=== PATIENT | female | born 1955 | race African-American/Black ===

== ENCOUNTER 2017-11-21 08:28 | Emergency (ER) | payer BC ==
[2017-11-21] MEDS ORDERED: LIDOCAINE 2% VISCOUS SOLN 20 ML UDCUP PO ONE (09:34)
[2017-11-21] MEDS ORDERED: MAG HYDROX/AL HYDROX/SIMETH SUSP 30 ML UDCUP PO ONE (09:34)
[2017-11-21] MEDS ORDERED: METOCLOPRAMIDE HCL ORAL SOLN 10 MG/10 ML UDCUP PO ONE (09:34)
--- NOTE | 2017-11-21 09:37 | ER Document Report ---
ED GI/ - General Chief Complaint: Abdominal Pain Stated Complaint: ABDOMINAL PAIN Time Seen by Provider: 11/21/17 09:31 Notes: The patient is a 62-year-old female, past medical history GERD, presents with 1 month of epigastric pain that is worsening over the past 2 days. She tried her Prilosec without much relief of her symptoms. Pain is worse at night while she lays down. She really had a negative H. pylori test done by her primary care physician and blood work 3 weeks ago that was unremarkable. She denies nausea, vomiting, fevers, hematemesis or urinary symptoms. TRAVEL OUTSIDE OF THE [place] IN LAST 30 DAYS: No - Related Data Allergies/Adverse Reactions: amoxicillin Allergy (Verified 03/30/16 12:19) Past Medical History - General Information source: Patient - Social History Smoking Status: Never Smoker Chew tobacco use (# tins/day): No Frequency of alcohol use: None Drug Abuse: None Family History: Reviewed & Not Pertinent Patient has suicidal ideation: No Patient has homicidal ideation: No - Past Medical History Cardiac Medical History: Reports: Hx Hypertension Renal/ Medical History: Denies: Hx Peritoneal Dialysis Past Surgical History: Reports: Hx Appendectomy Review of Systems - Review of Systems Notes: REVIEW OF SYSTEMS: CONSTITUTIONAL: -fevers, -chills EENT: -eye pain, -difficulty swallowing, -nasal congestion CARDIOVASCULAR: -chest pain, -syncope. RESPIRATORY: -cough, -SOB GASTROINTESTINAL: +epigastric abdominal pain, -nausea, -vomiting, -diarrhea GENITOURINARY: -dysuria, -hematuria MUSCULOSKELETAL: -back pain, -neck pain SKIN: -rash or skin lesions. HEMATOLOGIC: -easy bruising or bleeding. LYMPHATIC: -swollen, enlarged glands. NEUROLOGICAL: -altered mental status or loss of consciousness, -headache, - neurologic symptoms PSYCHIATRIC: -anxiety, -depression. ALL OTHER SYSTEMS REVIEWED AND NEGATIVE. Physical Exam - Vital signs Vitals: Temp Pulse Resp BP Pulse Ox 98.1 F 75 16 149/92 H 98 11/21/17 08:34 11/21/17 08:34 11/21/17 08:34 11/21/17 08:34 11/21/17 08:34 - Notes Notes: PHYSICAL EXAMINATION: GENERAL: Well-appearing, well-nourished and in no acute distress. HEAD: Atraumatic, normocephalic. EYES: Pupils equal round and reactive to light, extraocular movements intact, sclera anicteric, conjunctiva are normal. ENT: nares patent, oropharynx clear without exudates. Moist mucous membranes. NECK: Normal range of motion, supple without lymphadenopathy LUNGS: Breath sounds clear to auscultation bilaterally and equal. No wheezes rales or rhonchi. HEART: Regular rate and rhythm without murmurs ABDOMEN: Soft, epigastric abdominal tenderness, normoactive bowel sounds. No guarding, no rebound. No masses appreciated. EXTREMITIES: Normal range of motion, no pitting or edema. No cyanosis. NEUROLOGICAL: Cranial nerves grossly intact. Normal speech, normal gait. Normal sensory and motor exams. PSYCH: Normal mood, normal affect. SKIN: Warm, Dry, normal turgor, no rashes or lesions noted. Course - Re-evaluation Re-evalutation: Patient with 6 weeks of epigastric abdominal pain that is worse at night. Blood work is unremarkable and troponin EKG did not show any signs of active cardiac ischemia. She has already seen her primary care physician for this pain. Instructed her to follow-up with GI for possible EGD and further evaluation. She is already taking Prilosec once daily, so instructed her to begin it twice daily. Will also add Carafate. - Vital Signs Vital signs: Temp Pulse Resp BP Pulse Ox 98.1 F 75 16 149/92 H 98 11/21/17 08:34 11/21/17 08:34 11/21/17 08:34 11/21/17 08:34 11/21/17 08:34 - Laboratory Result Diagrams: 11/21/17 09:57 11/21/17 09:57 Laboratory results interpreted by me: 11/21/17 11/21/17 09:57 09:57 RBC 5.38 H RDW 14.6 H Sodium 145.8 H Direct Bilirubin 0.5 H AST 39 H Discharge - Discharge Clinical Impression: Epigastric abdominal pain Condition: Stable Disposition: HOME, SELF-CARE Additional Instructions: Gastritis You have an inflammation of the stomach called gastritis. This commonly causes upper abdominal pain, nausea, and vomiting. In severe cases, bleeding of the stomach lining can occur. Gastritis can be caused by bacteria or viruses , alcohol, or stomach-irritating drugs. Begin with sips of clear liquids. Take increasing amounts of fluid over the first 24 hours. Then start small amounts of bland foods (such as dry toast , applesauce, mashed potato). Gradually resume your usual diet. You should take antacids every two hours until the pain has subsided. Acid -suppressing drugs may be prescribed as well. Avoid aspirin, caffeine, tobacco , and alcohol. If the abdominal pain worsens, or there is evidence of major bleeding in the stomach (such as black, tarry stool, bloody or black vomit, or lightheadedness), you should return immediately. Call the doctor if you aren't improved in 24 to 36 hours. Prescriptions: Sucralfate [Carafate 1 gm Tablet] 1 gm PO ACHS #30 tablet Forms: Elevated Blood Pressure Referrals: RICKY VIVEROS MD [ACTIVE STAFF] - Follow up as needed
[2017-11-21 10:22] LABS: ABSOLUTE EOSINOPHILS # (AUTO) 0.1 10^3/uL (0.0-0.6); ABSOLUTE LYMPHOCYTES (AUTO) 1.5 10^3/uL (0.5-4.7); ABSOLUTE MONOCYTES (AUTO) 0.9 10^3/uL (0.1-1.4); ABSOLUTE NEUT (AUTO) 6.1 10^3/uL (1.7-8.2); BASOPHILS % (AUTO) 0.4 % (0-2); EOSINOPHILS % (AUTO) 0.7 % (0-6); HEMATOCRIT 44.6 % (36.0-47.0); HEMOGLOBIN 14.8 g/dL (12.0-15.5); LYMPHOCYTES % (AUTO) 17.6 % (13-45); MEAN CORPUSCULAR HEMOGLOBIN 27.6 pg (27.0-33.4); MEAN CORPUSCULAR HGB CONC 33.3 g/dL (32.0-36.0); MEAN CORPUSCULAR VOLUME 83 fl (80-97); MONOCYTES % (AUTO) 10.9 % (3-13); PLATELET COUNT 336 10^3/uL (150-450); RED BLOOD COUNT 5.38 10^6/uL (3.72-5.28); RED CELL DISTRIBUTION WIDTH 14.6 % (11.5-14.0); SEGMENTED NEUTROPHILS % (AUTO) 70.4 % (42-78); TOTAL CELLS COUNTED % (AUTO) 100 %; WHITE BLOOD COUNT 8.6 10^3/uL (4.0-10.5)
[2017-11-21 10:48] LABS: ALANINE AMINOTRANSFERASE 28 U/L (9-52); ALBUMIN 4.3 g/dL (3.5-5.0); ALKALINE PHOSPHATASE 101 U/L (38-126); ANION GAP 13 (5-19); ASPARTATE AMINO TRANSFERASE 39 U/L (14-36); BILIRUBIN,DIRECT 0.5 mg/dL (0.0-0.4); BILIRUBIN,TOTAL 0.5 mg/dL (0.2-1.3); BLOOD UREA NITROGEN 13 mg/dL (7-20); CALCIUM 10.1 mg/dL (8.4-10.2); CARBON DIOXIDE 29 mmol/L (22-30); CHLORIDE 104 mmol/L (98-107); GLUCOSE 92 mg/dL (75-110); LIPASE 33.4 U/L (23-300); POTASSIUM 4.2 mmol/L (3.6-5.0); SODIUM 145.8 mmol/L (137-145); TOTAL PROTEIN 8.1 g/dL (6.3-8.2)
[2017-11-21 11:28] VITALS: BP 148/93
--- NOTE | 2017-11-21 22:54 | EKG REPORT ---
SEVERITY:- ABNORMAL ECG - SINUS RHYTHM CONSIDER ANTEROSEPTAL INFARCT BORDERLINE T ABNORMALITIES, INFERIOR LEADS : Confirmed by: Anderson Aguilar 21-Nov-2017 22:54:25
== END 2017-11-21 11:28 | disposition home or self-care (01) ==
LOC: MERGE 08:28 → ER 08:28
DX: R10.13 Epigastric pain (principal); I10 Essential (primary) hypertension; Z79.899 Other long term (current) drug therapy
CPT/HCPCS: 93005; 99284; 36415; 83690; 85025; 80053; 84484; 93010; J3490

== ENCOUNTER 2017-11-23 06:00 | Emergency (ER) | payer BC ==
[2017-11-23] MEDS ORDERED: MAG HYDROX/AL HYDROX/SIMETH SUSP 30 ML UDCUP PO ONE (07:21)
[2017-11-23] MEDS ORDERED: LIDOCAINE 2% VISCOUS SOLN 20 ML UDCUP PO ONE (07:21)
[2017-11-23] MEDS ORDERED: METOCLOPRAMIDE HCL ORAL SOLN 10 MG/10 ML UDCUP PO ONE (07:21)
--- NOTE | 2017-11-23 07:31 | ER Document Report ---
ED GI/ - General Mode of Arrival: Ambulatory Information source: Patient TRAVEL OUTSIDE OF THE [place] IN LAST 30 DAYS: No <CHUCK RAMIRES - Last Filed: 11/23/17 09:02> <YANETH REID - Last Filed: 11/23/17 15:24> - General Chief Complaint: Chest Pain Stated Complaint: CHEST PAIN Time Seen by Provider: 11/23/17 07:19 Notes: Patient is a 62-year-old female who presents to the emergency department today with complaints of epigastric abdominal pain. Patient states she has had this pain for about a month but has never had a scope done. Patient states her pain is pretty sharp and constant however it increases at night and after food. Patient states she is short of breath but only with her pain. Patient denies any cough or history of AL. (CHUCK RAMIRES) - Related Data Allergies/Adverse Reactions: amoxicillin Allergy (Verified 03/30/16 12:19) Past Medical History - General Information source: Patient - Social History Smoking Status: Never Smoker Cigarette use (# per day): No Chew tobacco use (# tins/day): No Frequency of alcohol use: None Drug Abuse: None Lives with: Family Family History: Reviewed & Not Pertinent Patient has suicidal ideation: No Patient has homicidal ideation: No - Past Medical History Cardiac Medical History: Reports: Hx Hypertension Past Surgical History: Reports: Hx Appendectomy <CHUCK RAMIRES - Last Filed: 11/23/17 09:02> Review of Systems - Review of Systems Constitutional: No symptoms reported EENT: No symptoms reported Cardiovascular: No symptoms reported Respiratory: See HPI, Short of breath - from pain. denies: Cough Gastrointestinal: See HPI, Abdominal pain Genitourinary: No symptoms reported Female Genitourinary: No symptoms reported Musculoskeletal: No symptoms reported Skin: No symptoms reported Hematologic/Lymphatic: No symptoms reported Neurological/Psychological: No symptoms reported -: Yes All other systems reviewed and negative <CHUCK RAMIRES - Last Filed: 11/23/17 09:02> Physical Exam <CHUCK RAMIRES - Last Filed: 11/23/17 09:02> <YANETH REID - Last Filed: 11/23/17 15:24> - Vital signs Vitals: Temp Pulse Resp BP Pulse Ox 98 F 75 18 144/88 H 96 11/23/17 06:13 06/23/18 06:13 11/23/17 06:13 11/23/17 06:13 11/23/17 06:13 - Notes Notes: Physical Exam: General: Alert, appears well. HEENT: Normocephalic. Atraumatic. PERRL. Extraocular movements intact. Oropharynx clear. Neck: Supple. Non-tender. Respiratory: No respiratory distress. Clear and equal breath sounds bilaterally. Cardiovascular: Regular rate and rhythm. Abdominal: Epigastric and RUQ tenderness with palpation. No distension. Normal Bowel Sounds. Back: Non-tender. No deformity or step off. Extremities: Moves all four extremities. Upper extremities: Normal inspection. Normal ROM. Lower extremities: Normal inspection. No edema. Normal ROM. Neurological: Normal cognition. AAOx4. Normal speech. Psychological: Normal affect. Normal Mood. Skin: Warm. Dry. Normal color. (CHUCK RAMIRES) Course - Laboratory Result Diagrams: 11/23/17 07:40 11/23/17 07:40 <CHUCK RAMIRES - Last Filed: 11/23/17 09:02> - Laboratory Result Diagrams: 11/23/17 07:40 11/23/17 07:40 - Diagnostic Test Radiology reviewed: Image reviewed - NAD - EKG Interpretation by Ny EKG shows normal: Sinus rhythm Rate: Normal Rhythm: NSR - Normal axis and intervals When compared to previous EKG there are: No significant change <YANETH REID - Last Filed: 11/23/17 15:24> - Re-evaluation Re-evalutation: 11/23/17 10:06 Patient's labs within normal limits nonsignificant with no concerning findings on EKG chest x-ray and right upper quadrant ultrasound. Patient has GI consultation she states on Saturday of this week for further evaluation and consideration of EGD. Troponin negative and no EKG changes patient's pain has been steady second troponin over the last several days reveals no concern for ACS at this time. She also has sour taste in her throat pain is worse normally after eating and laying down at night. Her signs and symptoms are considered gastritis versus symptomatic gallbladder. Instructed patient to follow-up with her GI specialist on Saturday of this week. She is also losing limit her diet and reduce the amount of fatty and acidic food she eats. We will augment with Maalox currently taking omeprazole and Carafate. Return precautions provided (YANETH REID) - Vital Signs Vital signs: Temp Pulse Resp BP Pulse Ox 98.7 F 75 18 136/90 H 97 11/23/17 10:12 11/23/17 06:13 11/23/17 10:12 11/23/17 10:12 11/23/17 10:12 - Laboratory Laboratory results interpreted by me: 11/23/17 07:40 RDW 14.6 H Discharge <CHUCK RAMIRES - Last Filed: 11/23/17 09:02> <YANETH REID - Last Filed: 11/23/17 15:24> - Discharge Clinical Impression: Epigastric abdominal pain Condition: Good Disposition: HOME, SELF-CARE Instructions: Antacid Therapy ([facility]), Antinausea Medication ([facility]), Low-Fat Diet ([facility]), Reflux Disease (GERD) ([facility]) Additional Instructions: Per discussion, please follow-up with GI specialist Saturday of this coming week for further evaluation. Prescriptions: Bismuth Subsalicylate [Maalox] 1 dose PO ASDIR PRN #1 bottle PRN Reason: Scribe Attestation: 11/23/17 15:24 I personally performed the services described documentation, reviewed and edited the documentation which was dictated to describe my presence, and it accurately records my words and actions. (YANETH REID) Scribe Documentation - Scribe Written by Scribe:: Blanka Adame, 11/23/2017 0916 acting as scribe for :: Luis <CHUCK RAMIRES - Last Filed: 11/23/17 09:02>
[2017-11-23 07:59] LABS: ABSOLUTE LYMPHOCYTES (AUTO) 1.6 10^3/uL (0.5-4.7); BASOPHILS % (AUTO) 0.3 % (0-2); EOSINOPHILS % (AUTO) 0.5 % (0-6); LYMPHOCYTES % (AUTO) 20.9 % (13-45); MEAN CORPUSCULAR HEMOGLOBIN 27.9 pg (27.0-33.4); MEAN CORPUSCULAR HGB CONC 33.3 g/dL (32.0-36.0); MEAN CORPUSCULAR VOLUME 84 fl (80-97); MONOCYTES % (AUTO) 12.9 % (3-13); PLATELET COUNT 310 10^3/uL (150-450); RED BLOOD COUNT 5.01 10^6/uL (3.72-5.28); RED CELL DISTRIBUTION WIDTH 14.6 % (11.5-14.0); SEGMENTED NEUTROPHILS % (AUTO) 65.4 % (42-78); TOTAL CELLS COUNTED % (AUTO) 100 %; WHITE BLOOD COUNT 7.6 10^3/uL (4.0-10.5)
--- NOTE | 2017-11-23 08:11 | RADIOLOGY REPORT (SQ) ---
EXAM DESCRIPTION: CHEST SINGLE VIEW COMPLETED DATE/TIME: 11/23/2017 7:44 am REASON FOR STUDY: chest pain COMPARISON: None. NUMBER OF VIEWS: One view. TECHNIQUE: Single frontal radiographic view of the chest acquired. LIMITATIONS: None. FINDINGS: LUNGS AND PLEURA: Low lung volumes. No opacities, masses or pneumothorax. No pleural eff usion. MEDIASTINUM AND HILAR STRUCTURES: No masses. No contour abnormality. HEART AND VASCULAR STRUCTURES: Normal size. No evidence for failure. BONES: No acute findings. HARDWARE: None in the chest. OTHER: No other significant finding. IMPRESSION: LOW LUNG VOLUMES. NO SIGNIFICANT RADIOGRAPHIC FINDING IN THE CHEST. TECHNICAL DOCUMENTATION: JOB ID: [id number] [employer]- All Rights Reserved Reading location - IP/workstation name: [email or web address]
[2017-11-23 08:13] LABS: ALANINE AMINOTRANSFERASE 25 U/L (9-52); ALBUMIN 4.2 g/dL (3.5-5.0); ALKALINE PHOSPHATASE 95 U/L (38-126); ANION GAP 12 (5-19); ASPARTATE AMINO TRANSFERASE 35 U/L (14-36); BILIRUBIN,DIRECT 0.4 mg/dL (0.0-0.4); BILIRUBIN,TOTAL 0.7 mg/dL (0.2-1.3); BLOOD UREA NITROGEN 10 mg/dL (7-20); CALCIUM 9.9 mg/dL (8.4-10.2); CARBON DIOXIDE 29 mmol/L (22-30); CHLORIDE 102 mmol/L (98-107); GLUCOSE 97 mg/dL (75-110); POTASSIUM 4.2 mmol/L (3.6-5.0); SODIUM 143.2 mmol/L (137-145); TOTAL PROTEIN 7.9 g/dL (6.3-8.2)
--- NOTE | 2017-11-23 09:36 | RADIOLOGY REPORT (SQ) ---
EXAM DESCRIPTION: U/S ABDOMEN LIMITED W/O DOP COMPLETED DATE/TIME: 11/23/2017 9:21 am REASON FOR STUDY: epigastric pain, RUQ pain COMPARISON: None. TECHNIQUE: Dynamic and static grayscale images acquired of the abdomen and recorded on PACS. Additio nal selected color Doppler and spectral images recorded. LIMITATIONS: Markedly limited visualization from body habitus and overlying obscuring bowel gas. FINDINGS: PANCREAS: Not visualized. LIVER: Trace perihepatic fluid. Echogenic parenchyma suggests steatosis. LIVER VASCULATURE: Normal directional flow of the main portal vein and hepatic veins. GALLBLADDER: Obscured. No regional fluid. ULTRASOUND-DETECTED SALINAS'S SIGN: Negative. INTRAHEPATIC DUCTS AND COMMON DUCT: CBD and intrahepatic ducts normal caliber. No filling defects. INFERIOR VENA CAVA: Normal flow. AORTA: Not visualized. RIGHT KIDNEY: Normal size. Normal echogenicity. No solid or suspicious masses. No hydronephrosis. No calcifications. PERITONEAL AND RIGHT PLEURAL SPACE: No ascites or effusions. OTHER: No other significant findings. IMPRESSION: Very limited study. No gross suggestion of acute gallbladder disease. See above. TECHNICAL DOCUMENTATION: JOB ID: [id number] [employer]- All Rights Reserved Reading location - IP/workstation name: [email or web address]
--- NOTE | 2017-11-23 09:58 | EKG REPORT ---
SEVERITY:- ABNORMAL ECG - SINUS RHYTHM CONSIDER ANTEROSEPTAL INFARCT VS LVH BORDERLINE T ABNORMALITIES, INFERIOR LEADS : Confirmed by: Anderson Aguilar 23-Nov-2017 09:58:09
[2017-11-23 10:15] VITALS: BP 136/90
== END 2017-11-23 10:31 | disposition home or self-care (01) ==
LOC: MERGE 06:00 → ER 06:00
DX: R10.13 Epigastric pain (principal); R07.9 Chest pain, unspecified; R10.11 Right upper quadrant pain; I10 Essential (primary) hypertension; Z88.0 Allergy status to penicillin
CPT/HCPCS: 93005; 99285; 36415; 85025; 80053; 84484; 71045; 76705; 93010; J3490

== ENCOUNTER → 2017-12-10 | Outpatient (CLI) | payer BC ==
--- NOTE | 2017-12-10 16:40 | RADIOLOGY REPORT (SQ) ---
EXAM DESCRIPTION: CT ABDOMEN WITH IV ORAL CONT COMPLETED DATE/TIME: 12/10/2017 12:55 pm REASON FOR STUDY: EPIGASTRIC PAIN (R10.13), NAUSEA (R11.0) R10.13 EPIGASTRIC PAIN R11.0 NAUSEA COMPARISON: None. TECHNIQUE: CT scan of the abdomen performed with intravenous and with oral contrast using helical sc anning technique with dynamic intravenous contrast injection. Images reviewed with lung, soft tissue, and bone windows. Reconstructed coronal and sagittal MPR images reviewed. Delayed images for evaluat ion of the urinary system also acquired and evaluated. All images stored on PACS. All CT scanners at this facility use dose modulation, iterative reconstruc tion, and/or weight based dosing when appropriate to reduce radiation dose to as low as reasonably ac hievable (ALARA). [facility]: Dose Right [facility]: CareDose [facility]: Dose Right [facility]: Teradose 4D [facility]: Thumbtack CONTRAST TYPE AND DOSE: contrast/concentration: Isovue 370.00 mg/ml; Total Contrast Delivered: 99.0 ml; Total Saline Delivered: 72.0 ml RENAL FUNCTION: Creatinine 0.85 RADIATION DOSE: CT Rad equipment meets quality standard of care and radiation dose reduction techniq ues were employed. CTDIvol: 19.9 - 21.8 mGy. DLP: 1582 mGy-cm. . LIMITATIONS: Pelvis was not scanned FINDINGS: There are findings worrisome for peritoneal carcinomatosis, with a small amount of ascites in the abdomen, abnormal increased density of omental fat with spotty omental fat calcification, a r ind of low-density soft tissue along the cheikh hepatis structures and falciform ligament/gallbladder fossa region. At the bottom edge of the field of view, the right and left ovaries are massively enla rged and heterogeneous in density. LOWER CHEST: 1.8 cm nodule in the right medial cardiophrenic angle. Trace left pleural effusion. LIVER: Normal size. No primary liver masses or biliary ductal dilatation. Low attenuation material covers the surface of the liver under the hemidiaphragm and along the cheikh hepatis/gallbladder fossa worrisome for peritoneal tumor implants. SPLEEN: Normal size. No focal lesions. PANCREAS: No masses. No significant calcifications. No adjacent inflammation or peripancreatic fluid collections. Pancreatic duct not dilated. GALLBLADDER: No identified stones by CT criteria. No inflammatory changes to suggest cholecystitis. ADRENAL GLANDS: No significant masses or asymmetry. RIGHT KIDNEY AND URETER: No solid masses. No significant calcifications. No hydronephrosis or hyd roureter. LEFT KIDNEY AND URETER: No solid masses. No significant calcifications. No hydronephrosis or hydr oureter. AORTA AND VESSELS: No aneurysm. No dissection. Renal arteries, SMA, celiac without stenosis. RETROPERITONEUM: No retroperitoneal adenopathy, hemorrhage or masses. BOWEL AND PERITONEAL CAVITY: Patient drank oral contrast. No bowel obstruction. Sigmoid diverticulo sis without CT signs of acute diverticulitis APPENDIX: Not identified ABDOMINAL WALL: No masses. No hernias. BONES: No significant or acute findings. OTHER: No other significant finding. IMPRESSION: Findings worrisome for peritoneal carcinomatosis, possibly from [employer]PERATOR malignancy. Entire Pelvis was not scanned TECHNICAL DOCUMENTATION: JOB ID: [id number] Quality ID # [id number]: Final reports with documentation of one or more dose reduction techniques (e.g., Au tomated exposure control, adjustment of the mA and/or kV according to patient size, use of iterative reconstruction technique) 2010 [employer]- All Rights Reserved Reading location - IP/workstation name: [email or web address]
== END ==
LOC: MERGE 12-06 08:00 → RAD 12:20
PROVIDERS: ATTEND Internal Medicine Gastroenterology
DX: R10.13 Epigastric pain (principal); R11.0 Nausea
CPT/HCPCS: 74160

== ENCOUNTER 2018-05-19 08:10 | Emergency (ER) | payer BC ==
--- NOTE | 2018-05-19 08:23 | ER Document Report ---
ED General - General Chief Complaint: Chest Pain Stated Complaint: CHEST PAIN Time Seen by Provider: 05/19/18 08:22 Notes: Patient is a 62-year-old female, with active ovarian cancer undergoing chemotherapy that presents to the emergency department for chief complaint of chest pain. The patient reports that the pain started earlier this morning around 4 AM, then it got worse she had sweats associated and nausea. The currently rate the pain as 2 out of 10, and described as aching and heaviness in the middle of her chest, and subxiphoid region. They have had associated nausea and sweats. Denies any shortness of breath or difficulty breathing. Their risk factors for heart disease include hypertension, as mentioned patient has ongoing ovarian carcinoma. She denies any recent fevers, chills, night sweats, cough, diarrhea, dysuria or hematuria. Past Medical History: Ovarian cancer, hypertension Past Surgical History: Laparotomy and total hysterectomy Social History: Admits to smoking cigarettes, denies alcohol or drug use. Family History: Reviewed and noncontributory for presenting illness Allergies: Reviewed, see documented allergy list. REVIEW OF SYSTEMS: Other than noted above, the 12 point review of systems was reviewed with the patient and were negative, all pertinent findings are included in the HPI. PHYSICAL EXAMINATION: Vital signs reviewed, nursing noted reviewed. GENERAL: Obese, female in no acute distress HEAD: Atraumatic, normocephalic. EYES: Eyes appear normal, extraocular movements intact, sclera anicteric, conjunctiva are normal. ENT: nares patent, oropharynx clear without exudates. Moist mucous membranes. NECK: Normal range of motion, supple without lymphadenopathy LUNGS: Breath sounds clear to auscultation bilaterally and equal. No wheezes rales or rhonchi. Chest wall tenderness HEART: Regular rate and rhythm without murmurs ABDOMEN: Soft, nontender, normoactive bowel sounds. No rebound, guarding, or rigidity. No masses appreciated. EXTREMITIES: Nontender, good range of motion, no pitting or edema. NEUROLOGICAL: No focal neurological deficits. Moves all extremities spontaneously Motor and sensory grossly intact on exam. PSYCH: Normal mood, normal affect. SKIN: Warm, Dry, normal turgor, no rashes or lesions noted on exposed skin TRAVEL OUTSIDE OF THE [place] IN LAST 30 DAYS: No - Related Data Allergies/Adverse Reactions: amoxicillin [Amoxicillin] Allergy (Verified 05/19/18 08:10) guaifenesin [From [facility]] Allergy (Verified 05/19/18 08:10) phenylephrine HCl [From [facility]] Allergy (Verified 05/19/18 08:10) Past Medical History - Social History Smoking Status: Current Every Day Smoker Family History: Reviewed & Not Pertinent - Past Medical History Cardiac Medical History: Reports: Hx Hypertension Renal/ Medical History: Denies: Hx Peritoneal Dialysis Past Surgical History: Reports: Hx Appendectomy - Immunizations Hx Diphtheria, Pertussis, Tetanus Vaccination: Yes - 2003 Physical Exam - Vital signs Vitals: Pulse Ox 100 05/19/18 08:26 Course - Re-evaluation Re-evalutation: Patient seen and examined vital signs reviewed. Laboratory data and imaging were ordered as appropriate for the patient's presenting symptoms and complaint, with consideration of any critical or life threatening conditions that may be associated with their obtained history and exam as noted above. Including CT angiogram was ordered, ultrasound-guided IV placed on myself was placed in the right upper arm, however unfortunately this infiltrated during contrast bolusing, I then had to place a second ultrasound-guided IV in the left upper arm, which fortunately the patient's CTA was successful, and was negative for acute pulmonary embolism, and any other acute finding in the chest or lungs, there was mention of possible fluid around the gallbladder, and wall thickening, however patient clinically was asymptomatic, and blood work was not consistent with acute cholecystitis, this could potentially be a side effect from her chemotherapy, which I did discuss with the patient. Results were reviewed when available and demonstrated negative troponins x2, negative CTA of the chest, lipase negative, essentially unremarkable workup, EKG is not concerning for acute ischemia as well. The patient was re-evaluated and was stable, pain had completely resolved Evaluation was most consistent with chest pain, nonspecific, I did review this case with the patient's oncologist office, prior to discharge. Results were discussed with the patient at this point, after careful consideration I feel that that patient can be discharged from the emergency department, the patient was educated treatments and reasons to return to the emergency department based on their presumed diagnosis as noted above, they were advised to followup with a primary care physician in 2-3 days. Patient was agreeable to plan of care. *Note is created using voice recognition software and may contain spelling, syntax or grammatical errors. Laboratory 05/19/18 05/19/18 05/19/18 08:30 08:30 08:30 WBC 2.9 L RBC 4.13 Hgb 12.6 Hct 38.2 MCV 93 MCH 30.5 MCHC 32.9 RDW 17.5 H Plt Count 169 Seg Neutrophils % 25.3 L Lymphocytes % 54.1 H Monocytes % 19.5 H Eosinophils % 0.9 Basophils % 0.2 Absolute Neutrophils 0.7 L Absolute Lymphocytes 1.6 Absolute Monocytes 0.6 Absolute Eosinophils 0.0 Absolute Basophils 0.0 Sodium 142.1 Potassium 4.2 Chloride 107 Carbon Dioxide 24 Anion Gap 11 BUN 14 Creatinine 0.77 Est GFR ( Amer) > 60 Est GFR (Non-Af Amer) > 60 Glucose 108 Calcium 9.7 Total Bilirubin 0.5 Direct Bilirubin 0.4 Neonat Total Bilirubin Not Reportable Neonat Direct Bilirubin Not Reportable Neonat Indirect Bili Not Reportable AST 54 H ALT 10 Alkaline Phosphatase 133 H Troponin I < 0.012 Total Protein 7.9 Albumin 4.2 Lipase 05/19/18 05/19/18 08:30 11:24 WBC RBC Hgb Hct MCV MCH MCHC RDW Plt Count Seg Neutrophils % Lymphocytes % Monocytes % Eosinophils % Basophils % Absolute Neutrophils Absolute Lymphocytes Absolute Monocytes Absolute Eosinophils Absolute Basophils Sodium Potassium Chloride Carbon Dioxide Anion Gap BUN Creatinine Est GFR ( Amer) Est GFR (Non-Af Amer) Glucose Calcium Total Bilirubin Direct Bilirubin Neonat Total Bilirubin Neonat Direct Bilirubin Neonat Indirect Bili AST ALT Alkaline Phosphatase Troponin I < 0.012 Total Protein Albumin Lipase 58.0 Chest/Abdomen CTA 05/19/18 08:43 IMPRESSION: No evidence for pulmonary embolic disease. No acute consolidations or pleural effusions. Some minimal linear densities are identified in the lung bases most consistent with subsegmental atelectasis or scarring. There appears to be some thickening of the gallbladder monsivais and I cannot exclude a component of pericholecystic fluid. No obvious gallstones are identified. Clinical correlation is recommended. Gallbladder ultrasound may be of value for further evaluation if clinically warranted. Other findings as noted above - Vital Signs Vital signs: Temp Pulse Resp BP Pulse Ox 18 124/80 99 05/19/18 12:34 05/19/18 12:34 05/19/18 12:34 - Laboratory Result Diagrams: 05/19/18 08:30 05/19/18 08:30 Laboratory results interpreted by me: 05/19/18 05/19/18 08:30 08:30 WBC 2.9 L RDW 17.5 H Seg Neutrophils % 25.3 L Lymphocytes % 54.1 H Monocytes % 19.5 H Absolute Neutrophils 0.7 L AST 54 H Alkaline Phosphatase 133 H - EKG Interpretation by Me Additional EKG results interpreted by me: EKG demonstrates sinus rhythm with a ventricular rate of 77 bpm, normal axis, normal intervals, no evidence of acute ischemia on this EKG, no prior for comparison. Discharge - Discharge Clinical Impression: Chest pain Qualifiers: Chest pain type: unspecified Qualified Code(s): R07.9 - Chest pain, unspecified Condition: Stable Disposition: HOME, SELF-CARE Instructions: Chest Pain of Unclear Cause ([facility]) Additional Instructions: Please return to the emergency department if you have any worsening, or concern of your symptoms. Please return to the emergency department if you develop chest pain, difficulty breathing, severe abdominal pain, or ongoing vomiting. Please follow-up with your primary care physician in 2-3 days and any other recommended physicians. If prescribed, take all medications as directed. If you have any questions or concerns do not hesitate to return the emergency department for evaluation. Referrals: RICARDO HOWELL MD [ACTIVE STAFF] - Follow up in 3-5 days
[2018-05-19 08:44] LABS: ABSOLUTE LYMPHOCYTES (AUTO) 1.6 10^3/uL (0.5-4.7); ABSOLUTE MONOCYTES (AUTO) 0.6 10^3/uL (0.1-1.4); ABSOLUTE NEUT (AUTO) 0.7 10^3/uL (1.7-8.2); BASOPHILS % (AUTO) 0.2 % (0-2); EOSINOPHILS % (AUTO) 0.9 % (0-6); HEMATOCRIT 38.2 % (36.0-47.0); HEMOGLOBIN 12.6 g/dL (12.0-15.5); LYMPHOCYTES % (AUTO) 54.1 % (13-45); MEAN CORPUSCULAR HEMOGLOBIN 30.5 pg (27.0-33.4); MEAN CORPUSCULAR HGB CONC 32.9 g/dL (32.0-36.0); MEAN CORPUSCULAR VOLUME 93 fl (80-97); MONOCYTES % (AUTO) 19.5 % (3-13); PLATELET COUNT 169 10^3/uL (150-450); RED BLOOD COUNT 4.13 10^6/uL (3.72-5.28); RED CELL DISTRIBUTION WIDTH 17.5 % (11.5-14.0); SEGMENTED NEUTROPHILS % (AUTO) 25.3 % (42-78); TOTAL CELLS COUNTED % (AUTO) 100 %; WHITE BLOOD COUNT 2.9 10^3/uL (4.0-10.5)
[2018-05-19 09:26] LABS: ALANINE AMINOTRANSFERASE 10 U/L (9-52); ALBUMIN 4.2 g/dL (3.5-5.0); ALKALINE PHOSPHATASE 133 U/L (38-126); ANION GAP 11 (5-19); ASPARTATE AMINO TRANSFERASE 54 U/L (14-36); BILIRUBIN,DIRECT 0.4 mg/dL (0.0-0.4); BILIRUBIN,TOTAL 0.5 mg/dL (0.2-1.3); BLOOD UREA NITROGEN 14 mg/dL (7-20); CALCIUM 9.7 mg/dL (8.4-10.2); CARBON DIOXIDE 24 mmol/L (22-30); CHLORIDE 107 mmol/L (98-107); GLUCOSE 108 mg/dL (75-110); POTASSIUM 4.2 mmol/L (3.6-5.0); SODIUM 142.1 mmol/L (137-145); TOTAL PROTEIN 7.9 g/dL (6.3-8.2)
--- NOTE | 2018-05-19 11:30 | RADIOLOGY REPORT (SQ) ---
EXAM DESCRIPTION: CTA CHEST COMPLETED DATE/TIME: 05/19/2018 11:07 am REASON FOR STUDY: chest pain, active ovarian cancer COMPARISON: None. TECHNIQUE: CT scan of the chest performed using helical scanning technique with dynamic intravenous contrast injection. Images reviewed with lung, soft tissue and bone windows. Reconstructed coronal and sagittal MPR images reviewed. Additional 3 dimensional post-processing performed to develop Maximal Intensity Projection images ([place] P). All images stored on PACS. All CT scanners at this facility use dose modulation, iterative reconstruction, and/or weight based d osing when appropriate to reduce radiation dose to as low as reasonably achievable (ALARA). [facility]: Dose Right [facility]: CareDose [facility]: Dose Right [facility]: Teradose 4D [facility]: Cas[place]u CONTRAST TYPE AND DOSE: contrast/concentration: Isovue 350.00 mg/ml; Total Contrast Delivered: 82.0 ml; Total Saline Delivered: 68.3 ml Contrast bolus optimized for the pulmonary arteries. Not diagnostic for the aorta. RENAL FUNCTION: Creatinine 0.77 RADIATION DOSE: CT Rad equipment meets quality standard of care and radiation dose reduction techniq ues were employed. CTDIvol: 36.7 - 41.3 mGy. DLP: 1173 mGy-cm. . LIMITATIONS: None. FINDINGS: LUNGS AND PLEURA: No masses, infiltrates, or pneumothorax. No pleural effusions or pleura l calcifications. There are some minimal linear densities in the lung bases most consistent with sub segmental atelectasis or scarring. AORTA AND GREAT VESSELS: No aneurysm. Contrast bolus not optimized for the aorta. HEART: No pericardial effusion. No significant coronary artery calcifications. PULMONARY ARTERIES: No emboli visualized in the main pulmonary arteries or the segmental branches. HILAR AND MEDIASTINAL STRUCTURES: No identified masses or abnormal nodes. HARDWARE: None in the chest. UPPER ABDOMEN: There appears to be some thickening of the gallbladder monsivais and I cannot exclude a co mponent of pericholecystic fluid. No obvious gallstones are identified. Clinical correlation is rec ommended. Gallbladder ultrasound may be of value for further evaluation if clinically warranted. THYROID AND OTHER SOFT TISSUES: No masses. No adenopathy. BONES: No acute or significant finding. 3D MIPS: Confirm above findings. OTHER: No other significant finding. IMPRESSION: No evidence for pulmonary embolic disease. No acute consolidations or pleural effusions . Some minimal linear densities are identified in the lung bases most consistent with subsegmental a telectasis or scarring. There appears to be some thickening of the gallbladder monsivais and I cannot ex clude a component of pericholecystic fluid. No obvious gallstones are identified. Clinical correlat ion is recommended. Gallbladder ultrasound may be of value for further evaluation if clinically bertha anted. Other findings as noted above COMMENT: Quality ID # [id number]: Final reports with documentation of one or more dose reduction techniques (e.g., Automated exposure control, adjustment of the mA and/or kV according to patient size, use of iterative reconstruction technique) TECHNICAL DOCUMENTATION: JOB ID: [id number] [employer]- All Rights Reserved Reading location - IP/workstation name: [email or web address]
[2018-05-19 12:46] VITALS: BP 124/80
--- NOTE | 2018-05-19 13:27 | EKG REPORT ---
SEVERITY:- NORMAL ECG - SINUS RHYTHM : Confirmed by: Eliot Guerrier MD 19-May-2018 13:26:14
== END 2018-05-19 12:40 | disposition home or self-care (01) ==
LOC: ER 08:10
DX: R07.9 Chest pain, unspecified (principal); C56.9 Malignant neoplasm of unspecified ovary; Z79.899 Other long term (current) drug therapy; R11.0 Nausea; R61 Generalized hyperhidrosis; I10 Essential (primary) hypertension; F17.210 Nicotine dependence, cigarettes, uncomplicated; E66.9 Obesity, unspecified
CPT/HCPCS: 36415; 71275; 80053; 83690; 84484; 85025; 93005; 93010; 99285

== ENCOUNTER 2019-07-09 06:24 | Emergency (ER) | payer BC ==
--- NOTE | 2019-07-09 10:17 | ER Document Report ---
ED General - General Chief Complaint: Mouth Problem Stated Complaint: HEAD/MOUTH PAIN Time Seen by Provider: 07/09/19 09:55 Primary Care Provider: ANA M HURST MD [Primary Care Provider] - Follow up as needed Notes: Patient is a 63-year-old -Turkmen female with a past medical history significant for ovarian cancer who is currently undergoing chemotherapy who presents to the emergency department with a chief complaint of painful sores in the mouth. She states this is happened before. She states the chemotherapy causes side effect of the painful sores in her mouth. She was given a mouthwash in the past that worked to help clear the areas. She denies any difficulty breathing, tongue or throat swelling, facial pain headache or fever. TRAVEL OUTSIDE OF THE [place] IN LAST 30 DAYS: No - Related Data Allergies/Adverse Reactions: amoxicillin [Amoxicillin] Allergy (Verified 07/09/19 06:53) guaifenesin [From [facility]] Allergy (Verified 07/09/19 06:53) phenylephrine HCl [From [facility]] Allergy (Verified 07/09/19 06:53) Past Medical History - Social History Smoking Status: Never Smoker Family History: Reviewed & Not Pertinent Patient has suicidal ideation: No Patient has homicidal ideation: No - Past Medical History Cardiac Medical History: Reports: Hx Hypertension Renal/ Medical History: Denies: Hx Peritoneal Dialysis Past Surgical History: Reports: Hx Appendectomy, Hx Hysterectomy - Immunizations Hx Diphtheria, Pertussis, Tetanus Vaccination: Yes - 2003 Review of Systems - Review of Systems EENT: Mouth pain -: Yes All other systems reviewed and negative Physical Exam - Vital signs Vitals: Temp Pulse Resp BP Pulse Ox 98.5 F 80 18 159/98 H 100 07/09/19 06:36 07/09/19 06:36 07/09/19 06:36 07/09/19 06:36 07/09/19 06:36 - General General appearance: Appears well, Alert - HEENT Head: Normocephalic, Atraumatic Eyes: Normal Conjunctiva: Normal Extraocular movements intact: Yes Eyelashes: Normal Pupils: PERRL Mouth/Lips: Other - Mucositis and gingivitis most notably to the left upper lateral posterior gumline. Normal oropharynx otherwise Mucous membranes: Moist Pharynx: Normal Neck: Normal - Respiratory Respiratory status: No respiratory distress Chest status: Nontender Breath sounds: Normal Chest palpation: Normal - Cardiovascular Rhythm: Regular Heart sounds: Normal auscultation - Neurological Neuro grossly intact: Yes Cognition: Normal Orientation: AAOx4 [place] Coma Scale Eye Opening: Spontaneous [place] Coma Scale Verbal: Oriented [place] Coma Scale Motor: Obeys Commands [place] Coma Scale Total: 15 Speech: Normal - Psychological Associated symptoms: Normal affect, Normal mood - Skin Skin Temperature: Warm Skin Moisture: Dry Skin Color: Normal Course - Re-evaluation Re-evalutation: 07/09/19 10:14 Patient's history and physical consistent with a mucositis/gingivitis. We will prescribe Kidder Magic mouthwash. Counseled her at length regarding the importance of outpatient follow-up and advised she return here or any ER immediately with any new, persistent or worsening symptoms. She verbalized understood and agreed. - Vital Signs Vital signs: Temp Pulse Resp BP Pulse Ox 97.6 F 74 18 139/80 H 97 07/09/19 09:40 07/09/19 09:40 07/09/19 09:40 07/09/19 09:40 07/09/19 09:40 Discharge - Discharge Clinical Impression: Mucositis, Gingivitis Condition: Stable Disposition: HOME, SELF-CARE Instructions: Mouth Sores ([facility]) Additional Instructions: Please follow-up with your regular doctor and your oncologist in the next 2 to 3 days for reevaluation and continued care and management. Please return here or any ER immediately with any new, persistent or worsening symptoms. Prescriptions: Nystatin/Dexameth/Diphen [Magic Mouthwash ([facility] Formula) Susp] 5 ml PO QID #120 ml Lidocaine HCl [Xylocaine 2% Viscous Soln 15 ml Udcup] 15 ml PO QID PRN #60 ml PRN Reason: Referrals: ANA M HURST MD [Primary Care Provider] - Follow up as needed
[2019-07-09 10:49] VITALS: BP 134/81
== END 2019-07-09 10:48 | disposition home or self-care (01) ==
LOC: ER 06:24
DX: K12.30 Oral mucositis (ulcerative), unspecified (principal); K05.10 Chronic gingivitis, plaque induced; R51 Headache; C56.9 Malignant neoplasm of unspecified ovary; I10 Essential (primary) hypertension; Z90.710 Acquired absence of both cervix and uterus; Z79.899 Other long term (current) drug therapy

== ENCOUNTER 2019-10-26 23:04 | Emergency (ER) | payer BC ==
--- NOTE | 2019-10-26 23:37 | RADIOLOGY REPORT (SQ) ---
EXAM DESCRIPTION: X-ray, PA and lateral views of the chest CLINICAL HISTORY: 63 years Female, CHEST PAIN COMPARISON: None. FINDINGS: Lungs: Lung volumes are low. No focal consolidation. No pneumothorax or pleural effusion. Mediastinum: Cardiac and mediastinal silhouette are within normal limits. There is a right chest port in place with the tip of the catheter in the superior vena cava. Bones: Osseous structures are normal. Upper abdomen is unremarkable. No free intraperitoneal air. IMPRESSION: Low lung volumes. No acute process. No pneumonia or edema.
[2019-10-27] MEDS ORDERED: ACETAMINOPHEN 325 MG TABLET PO ONE (04:00)
--- NOTE | 2019-10-27 04:04 | ER Document Report ---
ED General - General Chief Complaint: Chest Pain Stated Complaint: CHEST PAIN Primary Care Provider: ANA M HURST MD [Primary Care Provider] - Follow up as needed TRAVEL OUTSIDE OF THE [place] IN LAST 30 DAYS: No - HPI Notes: 63-year-old female history of stage IV ovarian cancer currently on chemo, hypertension presents with 2 days of upper left chest pain. Patient says that chest feels tender, certain motions make it worse, radiates to the left arm intermittently. Patient has port in the right chest which is been working normally and has no pain. patient denies any worsening with exertion, pleuritic chest pain, cardiac history, other cardiac risk factors, known thoracic metastases, fever, prior episodes, trauma, lower extremity edema, shortness of breath, cough - Related Data Allergies/Adverse Reactions: amoxicillin [Amoxicillin] Allergy (Verified 10/26/19 23:31) guaifenesin [From [facility]] Allergy (Verified 10/26/19 23:31) phenylephrine HCl [From [facility]] Allergy (Verified 10/26/19 23:31) Past Medical History - General Information source: Patient - Social History Smoking Status: Never Smoker Frequency of alcohol use: None Drug Abuse: None Family History: Reviewed & Not Pertinent Patient has homicidal ideation: No - Past Medical History Cardiac Medical History: Reports: Hx Hypertension Renal/ Medical History: Denies: Hx Peritoneal Dialysis Past Surgical History: Reports: Hx Appendectomy, Hx Hysterectomy - Immunizations Hx Diphtheria, Pertussis, Tetanus Vaccination: Yes - 2003 Review of Systems - Review of Systems Notes: REVIEW OF SYSTEMS: CONSTITUTIONAL : Denies fever, chills, or sweats. EENT: Denies recent cold/sinus symptoms, denies throat pain CARDIOVASCULAR: + chest pain, -PASTOR[place] RESPIRATORY: Denies cough, denies shortness of breath. GASTROINTESTINAL: Denies abdominal pain, nausea/vomiting. GENITOURINARY: Denies difficulty urinating, painful urination. FEMALE GENITOURINARY: Denies abnormal vaginal bleeding, vaginal discharge. MUSCULOSKELETAL: Denies neck pain, back pain. SKIN: Denies rash or skin lesions. HEMATOLOGIC : Denies easy bruising or bleeding. LYMPHATIC: Denies swollen, enlarged glands. NEUROLOGICAL: Denies headache, denies change in gait. PSYCHIATRIC: Denies anxiety or stress or depression. Physical Exam - Vital signs Vitals: Temp Pulse Resp BP Pulse Ox 98.7 F 88 14 148/89 H 97 10/26/19 23:22 10/26/19 23:22 10/26/19 23:22 10/26/19 23:22 10/26/19 23:22 - Notes Notes: PHYSICAL EXAMINATION: GENERAL: Well-appearing, well-nourished and in no acute distress. HEAD: Atraumatic, normocephalic. EYES: Pupils equal round and appropriate constriction, sclera anicteric, conjunctiva are normal. ENT: nares patent, moist mucous membranes. NECK: Normal range of motion, supple without lymphadenopathy LUNGS: Breath sounds clear to auscultation bilaterally and equal. No wheezes rales or rhonchi. HEART: Regular rate and rhythm without murmurs CHEST: Normal inspection, no swelling or deformities, no bony tenderness, port in right chest palpable nontender, no skin abnormalities ABDOMEN: Soft, nontender, no guarding, no masses, no CVAT EXTREMITIES: Normal range of motion, no pitting or edema. No cyanosis. NEUROLOGICAL: Awake, alert, conversing appropriately, moves all extremities spontaneously. PSYCH: Normal mood, normal affect. SKIN: Warm, Dry, normal turgor, no rashes or lesions noted. Course - Re-evaluation Re-evalutation: 10/27/19 04:03 Focal tender left upper chest pain without characteristics concerning for ACS, most likely chest wall muscle strain, rule out PE given metastatic cancer history, also rule out pathologic rib fracture on CTA. EKG without any acute signs of ischemia. Will obtain troponin, CTA, give acetaminophen, likely discharge with close oncology follow-up. 10/27/19 06:40 Patient just brought back to an ED room. Work-up ordered for many hours but no nurse available to assume care of patient and triage nurse unable to complete given triage responsibilities. Dr. Miller has taken over care - Vital Signs Vital signs: Temp Pulse Resp BP Pulse Ox 98.7 F 88 14 148/89 H 97 10/26/19 23:31 10/26/19 23:22 10/26/19 23:22 10/26/19 23:22 10/26/19 23:22 Discharge - Discharge Referrals: ANA M HURST MD [Primary Care Provider] - Follow up as needed
[2019-10-27] MEDS ORDERED: ACETAMINOPHEN 325 MG TABLET ONE (07:26)
--- NOTE | 2019-10-27 07:26 | EKG REPORT ---
SEVERITY:- ABNORMAL ECG - SINUS RHYTHM CONSIDER ANTEROSEPTAL INFARCT BORDERLINE T ABNORMALITIES, INFERIOR LEADS : Confirmed by: Eliot Guerrier MD 27-Oct-2019 07:25:51
--- NOTE | 2019-10-27 07:44 | ER Document Report ---
ED General - General Chief Complaint: Chest Pain Stated Complaint: CHEST PAIN Time Seen by Provider: 10/27/19 06:09 Primary Care Provider: ANA M HURST MD [Primary Care Provider] - Follow up as needed Notes: 63-year-old lady with advanced ovarian cancer on monthly chemotherapy last dose 3 weeks ago presents with left upper chest pain fleeting sharp occasionally radiates down the left posterior arm present for minutes to seconds to hours. No leg swelling. Port is on the opposite side. No fever no cough no shortness of breath. No history of coronary disease or thrombosis as far she can tell me. She is cared for in [place] for her cancer. I TRAVEL OUTSIDE OF THE [place] IN LAST 30 DAYS: No - Related Data Allergies/Adverse Reactions: amoxicillin [Amoxicillin] Allergy (Verified 10/26/19 23:31) guaifenesin [From [facility]] Allergy (Verified 10/26/19 23:31) phenylephrine HCl [From [facility]] Allergy (Verified 10/26/19 23:31) Past Medical History - General Information source: Patient - Social History Smoking Status: Never Smoker Frequency of alcohol use: None Drug Abuse: None Family History: Reviewed & Not Pertinent Patient has homicidal ideation: No - Past Medical History Cardiac Medical History: Reports: Hx Hypertension Renal/ Medical History: Denies: Hx Peritoneal Dialysis Past Surgical History: Reports: Hx Appendectomy, Hx Hysterectomy - Immunizations Hx Diphtheria, Pertussis, Tetanus Vaccination: Yes - 2003 Review of Systems - Review of Systems Notes: REVIEW OF SYSTEMS GEN: Denies fever, chills, weight loss ENT: Denies sore throat, nasal discharge, ear pain EYES: Denies blurry vision, eye pain, discharge CV: See HPI RESP: Denies cough, shortness of breath, wheezing GI: Denies abdominal pain, nausea, vomiting, diarrhea MSK: Denies joint pain/swelling, edema, SKIN: Denies rash, skin lesions LYMPH: Denies swollen glands/lymph nodes NEURO: Denies headache, focal weakness or numbness, dizziness PSYCH: Denies depression, suicidal or homicidal ideation PHYSICAL EXAMINATION General: No acute distress, well-nourished Head: Atraumatic, normocephalic ENT: Mouth normal, oropharynx moist, no exudates or tonsillar enlargement Eyes: Conjunctiva normal, pupils equal, lids normal Neck: No JVD, supple, no guarding CVS: Normal rate, regular rhythm, no murmurs Resp: No resp distress, equal and normal breath sounds bilaterally. Left upper chest tenderness below the clavicle, right port is intact with no tenderness. GI: Nondistended, soft, no tenderness to palpation, no rebound or guarding Ext: No deformities, no edema, normal range of motion in upper and lower ext Back: No CVA or midline TTP Skin: No rash, warm Lymphatic: No lymphadeopathy noted Neuro: Awake, alert. Face symmetric. GCS 15. Physical Exam - Vital signs Vitals: Temp Pulse Resp BP Pulse Ox 98.7 F 88 14 148/89 H 97 10/26/19 23:22 10/26/19 23:22 10/26/19 23:22 10/26/19 23:22 10/26/19 23:22 Course - Re-evaluation Re-evalutation: 10/27/19 07:44 Reproducible chest wall pain in a patient with advanced cancer. Most likely musculoskeletal but have to rule out PE given cancer and ACS given risk factors Not requesting pain medicine, pain-free in the ED with normal vital signs. We will do CTA and labs 10/27/19 10:03 CTA negative within limits of contrast bolus, this given low probability I think is safe for discharge. Troponin negative no acute EKG changes resolved pain was reproducible. Stable for discharge to follow-up at [facility] with her gynecology oncology team. I have discussed with the patient there likely diagnosis, aftercare plan, follow-up plans and my usual and customary return precautions. They verbalized understanding of this. - Vital Signs Vital signs: Temp Pulse Resp BP Pulse Ox 98.7 F 88 16 125/90 H 98 10/26/19 23:31 10/26/19 23:22 10/27/19 08:01 10/27/19 08:01 10/27/19 08:01 - Laboratory Result Diagrams: 10/27/19 07:47 10/27/19 07:47 Laboratory results interpreted by me: 10/27/19 10/27/19 10/27/19 07:47 07:47 07:47 RDW 15.2 H APTT 39.9 H Alkaline Phosphatase 134 H - Diagnostic Test Radiology reviewed: Image reviewed, Reports reviewed - EKG Interpretation by Me EKG shows normal: Sinus rhythm Rate: Normal When compared to previous EKG there are: No significant change - No ST or T wave changes Discharge - Discharge Clinical Impression: Chest wall pain Condition: Good Disposition: HOME, SELF-CARE Instructions: Chest Pain of Unclear Cause ([facility]) Additional Instructions: We have ruled out heart attack and blood clot. Please follow-up with gynecologic oncology at [facility] by phone today and as soon as they want to see you in the office. Referrals: ANA M HURST MD [Primary Care Provider] - Follow up as needed
[2019-10-27 07:58] LABS: ABSOLUTE EOSINOPHILS # (AUTO) 0.2 10^3/uL (0.0-0.6); ABSOLUTE MONOCYTES (AUTO) 1.1 10^3/uL (0.1-1.4); ABSOLUTE NEUT (AUTO) 5.7 10^3/uL (1.7-8.2); BASOPHILS % (AUTO) 0.5 % (0-2); EOSINOPHILS % (AUTO) 2.8 % (0-6); HEMATOCRIT 42.9 % (36.0-47.0); HEMOGLOBIN 14.8 g/dL (12.0-15.5); LYMPHOCYTES % (AUTO) 21.8 % (13-45); MEAN CORPUSCULAR HEMOGLOBIN 30.9 pg (27.0-33.4); MEAN CORPUSCULAR HGB CONC 34.4 g/dL (32.0-36.0); MEAN CORPUSCULAR VOLUME 90 fl (80-97); PLATELET COUNT 239 10^3/uL (150-450); RED BLOOD COUNT 4.77 10^6/uL (3.72-5.28); RED CELL DISTRIBUTION WIDTH 15.2 % (11.5-14.0); SEGMENTED NEUTROPHILS % (AUTO) 62.9 % (42-78); TOTAL CELLS COUNTED % (AUTO) 100 %
[2019-10-27 08:03] LABS: INTERNATIONAL RATION (INR) 1.06; PROTHROMBIN TIME 13.8 SEC (11.4-15.4)
[2019-10-27 08:04] LABS: PARTIAL THROMBOPLASTIN TIME 39.9 SEC (23.5-35.8)
[2019-10-27 08:21] LABS: ALBUMIN 3.9 g/dL (3.5-5.0); ALKALINE PHOSPHATASE 134 U/L (38-126); ASPARTATE AMINO TRANSFERASE 29 U/L (14-36); CARBON DIOXIDE 24 mmol/L (22-30); TOTAL PROTEIN 7.5 g/dL (6.3-8.2)
[2019-10-27 08:25] LABS: BLOOD UREA NITROGEN 19 mg/dL (7-20); CALCIUM 9.9 mg/dL (8.4-10.2); CREATINE KINASE 75 U/L (30-135); GLUCOSE 99 mg/dL (75-110); POTASSIUM 3.9 mmol/L (3.6-5.0)
[2019-10-27 08:27] LABS: ANION GAP 10 (5-19); BILIRUBIN,TOTAL 0.5 mg/dL (0.2-1.3); CHLORIDE 105 mmol/L (98-107)
[2019-10-27 08:30] LABS: CREATINE KINASE MB 0.51 ng/mL (<4.55)
[2019-10-27 08:38] LABS: TROPONIN I < 0.012 ng/mL
--- NOTE | 2019-10-27 09:44 | RADIOLOGY REPORT (SQ) ---
EXAM DESCRIPTION: CTA CHEST IMAGES COMPLETED DATE/TIME: 10/27/2019 9:13 am REASON FOR STUDY: active ovarian ca cp COMPARISON: CT of the chest with contrast from 05/19/2018. TECHNIQUE: CT scan of the chest performed using helical scanning technique with dynamic intravenous contrast injection. Images reviewed with lung, soft tissue and bone windows. Reconstructed coronal and sagittal MPR images reviewed. Additional 3 dimensional post-processing performed to develop Maximal Intensity Projection images (AK P). All images stored on PACS. All CT scanners at this facility use dose modulation, iterative reconstruction, and/or weight based d osing when appropriate to reduce radiation dose to as low as reasonably achievable (ALARA). [facility]: Dose Right [facility]: CareDose [facility]: Dose Right [facility]: Teradose 4D [facility]: [place] CONTRAST TYPE AND DOSE: Contrast/concentration: Isovue 350.00 mg/ml; Total Contrast Delivered: 40.0 ml; Total Saline Delivered: 40.0 ml Contrast bolus optimized for the pulmonary arteries. RENAL FUNCTION: Creatinine 0.8 milligrams/deciliter. RADIATION DOSE: CT Rad equipment meets quality standard of care and radiation dose reduction techniq ues were employed. CTDIvol: 6.6 - 38.9 mGy. DLP: 1347 mGy-cm. LIMITATIONS: None. FINDINGS: LUNGS AND PLEURA: The trachea and main bronchi are patent. The dependent opacities in the lower lobes and lingula are favored to represent atelectasis. There is no acute consolidation, size able pleural effusion or greater than 6 mm pulmonary nodule. AORTA AND GREAT VESSELS: No aneurysm or dissection of the thoracic aorta. HEART: No cardiomegaly or pericardial effusion. PULMONARY ARTERIES: Evaluation is limited due to suboptimal contrast opacification of the pulmonary a rteries (163 Hounsfield units). There is no central pulmonary embolus. HILAR AND MEDIASTINAL STRUCTURES: No adenopathy or mass. HARDWARE: The tip of the right IJ single-lumen port terminates within the SVC. UPPER ABDOMEN: No acute findings. THYROID AND OTHER SOFT TISSUES: No adenopathy or mass. BONES: No fracture or osseous lesion. 3D MIPS: Confirm above findings. OTHER: No other finding. IMPRESSION: 1. Limited CTA of the chest due to suboptimal contrast opacification of the pulmonary ar teries. There is no central pulmonary embolus. 2. No acute cardiopulmonary process. COMMENT: Quality ID # [id number]: Final reports with documentation of one or more dose reduction techniques (e.g., Automated exposure control, adjustment of the mA and/or kV according to patient size, use of iterative reconstruction technique) TECHNICAL DOCUMENTATION: JOB ID: [id number] 2010 [employer]- All Rights Reserved Reading location - IP/workstation name: [email or web address]
[2019-10-27 10:25] VITALS: BP 117/80
== END 2019-10-27 10:36 | disposition home or self-care (01) ==
LOC: ER 23:04
DX: R07.89 Other chest pain (principal); I10 Essential (primary) hypertension; C56.9 Malignant neoplasm of unspecified ovary; Z79.899 Other long term (current) drug therapy; Z88.0 Allergy status to penicillin; Z88.8 Allergy status to other drugs, medicaments and biological substances
CPT/HCPCS: 93005; 36591; 99285; 36415; 82553; 82550; 85025; 85610; 85730; 80053; 84484; 71046; 71275; 93010; J1642

== ENCOUNTER 2020-06-16 22:16 | Emergency (ER) | payer BC ==
--- NOTE | 2020-06-17 00:29 | ER Document Report ---
ED Medical Screen (RME) - General Chief Complaint: Blurred Vision Stated Complaint: BLURRY VISION Primary Care Provider: ANA M HURST MD [Primary Care Provider] - Follow up as needed TRAVEL OUTSIDE OF THE [place] IN LAST 30 DAYS: No - HPI Notes: 06/17/20 00:25 Rapid Medical Exam HPI: This is a 64-year-old female with a history of ovarian cancer receiving chemotherapy complaining of blurry vision. Patient has this has been an issue past couple months. Her oncologist has tempted to change her chemotherapy drugs which at times will resolve the blurriness. Patient restarted one of the chemo drugs yesterday and her blurry vision returned but she says it is more severe tonight with larger areas of blurriness. She denies loss of vision. Says she has seen an human resources operations specialist in the not too distant past regarding this who says she had some mild glaucoma but no other signs to explain the blurriness. Patient says she gets regular scans and PET scans to monitor her cancer but usually are from the neck down. Denies any recent imaging to her head. She has no other neuro deficits, no unit unilateral numbness/weakness, speech changes, dizziness, confusion, or severe headache. Physical Exam: GENERAL: Well-appearing, well-nourished and in no acute distress. HEAD: Atraumatic, normocephalic. ENT: Moist mucous membranes. RESP: Respirations even and unlabored CV- Regular rate. NEURO: No focal neurological deficits. Moves all extremities spontaneously and on command. My involvement in this patients care was limited to a rapid initial assessment. A comprehensive ED assessment and evaluation of the patient, analysis of test results, treatment, and completion of the medical decision making process will be performed by other ER providers. - Related Data Allergies/Adverse Reactions: amoxicillin [Amoxicillin] Allergy (Verified 10/26/19 23:31) guaifenesin [From [facility]] Allergy (Verified 10/26/19 23:31) phenylephrine HCl [From [facility]] Allergy (Verified 10/26/19 23:31) Past Medical History - Past Medical History Cardiac Medical History: Reports: Hx Hypertension Renal/ Medical History: Denies: Hx Peritoneal Dialysis Past Surgical History: Reports: Hx Appendectomy, Hx Hysterectomy - Immunizations Hx Diphtheria, Pertussis, Tetanus Vaccination: Yes - 2003 Physical Exam - Vital signs Vitals: Temp Pulse Resp BP Pulse Ox 98.2 F 86 16 111/61 96 06/16/20 22:33 06/16/20 22:33 06/16/20 22:33 06/16/20 22:33 06/16/20 22:33 Course - Vital Signs Vital signs: Temp Pulse Resp BP Pulse Ox 98.2 F 86 16 111/61 96 06/16/20 22:33 06/16/20 22:33 06/16/20 22:33 06/16/20 22:33 06/16/20 22:33 Doctor's Discharge - Discharge Referrals: ANA M HURST MD [Primary Care Provider] - Follow up as needed
--- NOTE | 2020-06-17 01:13 | RADIOLOGY REPORT (SQ) ---
EXAM: CT HEAD WITHOUT CLINICAL INDICATION: 64-year-old female with vision changes, on chemotherapy for ovarian cancer. COMPARISON: None. TECHNIQUE: CT brain without contrast. This exam was performed according to our departmental dose optimization program which includes use of automated exposure control, adjustment of the mA and/or kV according to patient size and/or use of iterative reconstruction technique. FINDINGS: Multifocal regions of patchy hypoattenuation are present in a subcortical and periventricular deep white matter distribution, nonspecific; however, most likely represent small vessel ischemic disease, age indeterminate. The ventricles, sulci, and cisterns are symmetric and unremarkable. The johnson-white matter differentiation is preserved. There is no mass effect, midline shift, intra- or extra-axial fluid collection/acute hemorrhage. The osseous structures are unremarkable. The paranasal sinuses and mastoid air cells are clear. IMPRESSION: 1. No acute intracranial abnormalities. Nonspecific white matter change most likely small vessel ischemic disease, age indeterminate. 2. CT is insensitive for early evaluation of acute stroke. If there is clinical concern for acute ischemia, an MRI may be considered. 3. For further evaluation of chemotherapy related changes or subtle metastasis, follow-up examination with MRI pre and postcontrast may be considered.
[2020-06-17 05:39] LABS: ABSOLUTE BASOPHILS # (AUTO) 0.1 10^3/uL (0.0-0.2); ABSOLUTE LYMPHOCYTES (AUTO) 0.7 10^3/uL (0.5-4.7); ABSOLUTE MONOCYTES (AUTO) 1.1 10^3/uL (0.1-1.4); ABSOLUTE NEUT (AUTO) 10.9 10^3/uL (1.7-8.2); BASOPHILS % (AUTO) 0.5 % (0-2); EOSINOPHILS % (AUTO) 0.1 % (0-6); HEMATOCRIT 37.5 % (36.0-47.0); HEMOGLOBIN 12.3 g/dL (12.0-15.5); LYMPHOCYTES % (AUTO) 5.6 % (13-45); MEAN CORPUSCULAR HEMOGLOBIN 29.5 pg (27.0-33.4); MEAN CORPUSCULAR HGB CONC 32.8 g/dL (32.0-36.0); MEAN CORPUSCULAR VOLUME 90 fl (80-97); MONOCYTES % (AUTO) 8.9 % (3-13); PLATELET COUNT 301 10^3/uL (150-450); RED BLOOD COUNT 4.17 10^6/uL (3.72-5.28); RED CELL DISTRIBUTION WIDTH 18.7 % (11.5-14.0); SEGMENTED NEUTROPHILS % (AUTO) 84.9 % (42-78); TOTAL CELLS COUNTED % (AUTO) 100 %; WHITE BLOOD COUNT 12.8 10^3/uL (4.0-10.5)
[2020-06-17 05:56] LABS: ALBUMIN 3.5 g/dL (3.5-5.0); ALKALINE PHOSPHATASE 148 U/L (38-126); ANION GAP 11 (5-19); ASPARTATE AMINO TRANSFERASE 121 U/L (14-36); BILIRUBIN,DIRECT 0.3 mg/dL (0.0-0.4); BILIRUBIN,TOTAL 0.5 mg/dL (0.2-1.3); BLOOD UREA NITROGEN 23 mg/dL (7-20); CALCIUM 9.2 mg/dL (8.4-10.2); CARBON DIOXIDE 22 mmol/L (22-30); CHLORIDE 105 mmol/L (98-107); GLUCOSE 146 mg/dL (75-110); TOTAL PROTEIN 6.9 g/dL (6.3-8.2)
--- NOTE | 2020-06-17 08:20 | ER Document Report ---
Entered by CHUCK RAMIRES SCRIBE 06/17/20 0755 Acting as scribe for:SHARONA WHITEHEAD MD ED Eye Complaint - General Chief Complaint: Blurred Vision Stated Complaint: BLURRY VISION Time Seen by Provider: 06/17/20 07:26 Primary Care Provider: [facility] [Provider Group] - 06/17/20 10:00 am ANA M HURST MD [Primary Care Provider] - Follow up as needed Mode of Arrival: Ambulatory Information source: Patient Notes: This 64-year-old female patient presents to the emergency department today with complaints of blurry vision. Patient has ovarian cancer and is on chemotherapy and it is thought that this blurry vision could be chemo induced. They have been altering her chemotherapy medications but there does not appear to be a discernable pattern between the chemotherapy drugs and her blurry vision. She has been seen by ophthalmology, Dr. Nicole Hendrix, and her eye exam was unremarkable. TRAVEL OUTSIDE OF THE [place] IN LAST 30 DAYS: No - Related Data Allergies/Adverse Reactions: amoxicillin [Amoxicillin] Allergy (Verified 10/26/19 23:31) guaifenesin [From [facility] ER] Allergy (Verified 10/26/19 23:31) phenylephrine HCl [From [facility] ER] Allergy (Verified 10/26/19 23:31) Past Medical History - General Information source: Patient - Social History Smoking Status: Never Smoker Cigarette use (# per day): No Frequency of alcohol use: None Drug Abuse: None Lives with: Family Family History: Reviewed & Not Pertinent - Past Medical History Cardiac Medical History: Reports: Hx Hypertension Malignancy Medical History: Reports: Hx Ovarian Cancer Past Surgical History: Reports: Hx Appendectomy, Hx Hysterectomy - Immunizations Hx Diphtheria, Pertussis, Tetanus Vaccination: Yes - 2003 Review of Systems - Review of Systems Constitutional: No symptoms reported EENT: See HPI, Blurred vision Cardiovascular: No symptoms reported Respiratory: No symptoms reported Gastrointestinal: No symptoms reported Genitourinary: No symptoms reported Female Genitourinary: No symptoms reported Musculoskeletal: No symptoms reported Skin: No symptoms reported Hematologic/Lymphatic: No symptoms reported Neurological/Psychological: No symptoms reported -: Yes All other systems reviewed and negative Physical Exam - Vital signs Vitals: Temp Pulse Resp BP Pulse Ox 98.2 F 86 16 111/61 96 06/16/20 22:33 06/16/20 22:33 06/16/20 22:33 06/16/20 22:33 06/16/20 22:33 - Notes Notes: Physical Exam: General: Alert, appears well. HEENT: Normocephalic. Atraumatic. PERRL. Extraocular movements intact. Oropharynx clear. Patient able to read her pill bottles but mentions that there is a "glare" over the text. Neck: Supple. Non-tender. Respiratory: No respiratory distress. Clear and equal breath sounds bilaterally. Cardiovascular: Regular rate and rhythm. Abdominal: Obese. Non-tender. No distension. Normal Bowel Sounds. Back: No gross abnormalities. Extremities: Moves all four extremities. Upper extremities: Normal inspection. Normal ROM. Lower extremities: Normal inspection. No edema. Normal ROM. Neurological: Normal cognition. AAOx4. Normal speech. Psychological: Normal affect. Normal Mood. Skin: Warm. Dry. Normal color. Course - Vital Signs Vital signs: Temp Pulse Resp BP Pulse Ox 98.2 F 69 18 111/64 100 06/17/20 08:35 06/17/20 08:35 06/17/20 08:35 06/17/20 08:35 06/17/20 08:35 - Laboratory Results Result Diagrams: 06/17/20 05:22 06/17/20 05:22 Laboratory Results Interpreted: 06/17/20 06/17/20 05:22 05:22 WBC 12.8 H RDW 18.7 H Lymph % (Auto) 5.6 L Absolute Neuts (auto) 10.9 H Seg Neutrophils % 84.9 H BUN 23 H Est GFR (MDRD) Non-Af 59 L Glucose 146 H AST 121 H ALT 62 H Alkaline Phosphatase 148 H Critical Laboratory Results Reviewed: No Critical Results - Radiology Results Radiology Results Interpreted: 06/17/20 09:22 CT scan of the head shows chronic small vessel ischemic white matter disease without acute findings. Critical Radiology Results Reviewed: No Critical Results Discharge - Discharge Clinical Impression: Blurred vision, bilateral Condition: Stable Disposition: HOME, SELF-CARE Additional Instructions: Go to [facility] at 10 AM this morning to be reevaluated for your blurry vision. Referrals: ANA M HURST MD [Primary Care Provider] - Follow up as needed [facility] [Provider Group] - 06/17/20 10:00 am I personally performed the services described in the documentation, reviewed and edited the documentation which was dictated to the scribe in my presence, and it accurately records my words and actions.
[2020-06-17 08:38] VITALS: BP 111/64
== END 2020-06-17 08:34 | disposition home or self-care (01) ==
LOC: ER 22:16
DX: H53.8 Other visual disturbances (principal); C56.9 Malignant neoplasm of unspecified ovary; Z79.899 Other long term (current) drug therapy; Z88.0 Allergy status to penicillin; Z88.8 Allergy status to other drugs, medicaments and biological substances; I10 Essential (primary) hypertension
CPT/HCPCS: 99285; 96374; 36415; 85025; 80053; 70450; J1642